=== PATIENT | female | born 1965 | race Caucasian/White ===

== ENCOUNTER 2018-03-15 13:01 | Emergency (ER) | payer MEDICAID ==
[~2018-03-15] VITALS: Ht 162.6 cm; Wt 76.0 kg
[2018-03-15] MEDS ORDERED: NITROFURANTOIN 100MG M/M CAPSULE PO ONE (16:00)
[2018-03-15 16:31] LABS: CLARITY URINE CLEAR (CLEAR); COLOR URINE YELLOW (YELLOW); KETONES URINE NEGATIVE (NEGATIVE); LEUKOCYTE ESTERASE URINE NEGATIVE (NEGATIVE); NITRITE URINE NEGATIVE (NEGATIVE); OCCULT BLOOD URINE 2+ (NEGATIVE); PH URINE 7.5 (4.5-8.0); PROTEIN URINE NEGATIVE (NEGATIVE); SPECIFIC GRAVITY URINE 1.006 (1.005-1.030); UROBILINOGEN URINE 0.2 E.U./dL (0.2-1.0)
[2018-03-15 16:51] LABS: *BARBITURATES SCREEN URINE NEGATIVE (NEGATIVE); *BENZODIAZEPINES SCREEN URINE NEGATIVE (NEGATIVE); *COCAINE SCREEN URINE NEGATIVE (NEGATIVE)
[2018-03-15 16:52] LABS: *AMPHETAMINES SCREEN URINE NEGATIVE (NEGATIVE); CANNABINOID URINE SCREEN NEGATIVE (NEGATIVE); METHADONE URINE SCREEN NEGATIVE (NEGATIVE); OPIATES URINE SCREEN NEGATIVE (NEGATIVE); PHENCYCLIDINE URINE SCREEN NEGATIVE (NEGATIVE)
[2018-03-15 17:07] LABS: BASOPHILS % 1.6 % (0.0-2.0); EOSINOPHILS % 4.3 % (0.0-5.0); HEMATOCRIT. 40.2 % (36.0-48.0); HEMOGLOBIN. 13.6 g/dL (12.0-16.0); MEAN CORPUSCULAR HEMOGLOBIN 30.9 pg (28.0-32.0); MEAN CORPUSCULAR VOLUME 91.3 fL (81.0-99.0); MEAN PLATELET VOLUME 7.2 fl (7.4-10.4); MONOCYTES % 8.3 % (2.0-8.0); NEUTROPHILS % 55.8 % (40.0-76.0); PLATELET 423 x1000/uL (130-400); RED CELL DISTRIBUTION WIDTH 14.3 % (11.6-14.6)
[2018-03-15 17:16] LABS: CHLORIDE 101 mEq/L (98-107)
[2018-03-15 17:28] LABS: ETHANOL BLOOD < 10 mg/dL
[2018-03-15] MEDS ORDERED: PARO40TA75 MT (19:12)
[2018-03-15] MEDS ORDERED: ARIP15TA2 MT (19:12)
[2018-03-15] MEDS ORDERED: HYDR-3735 MT (19:12)
[2018-03-15] MEDS ORDERED: TRAZ-212 MT (19:12)
[2018-03-15] MEDS ORDERED: RISP0.5T19 MT (19:12)
[2018-03-15] MEDS ORDERED: HYDR-459 MT (19:12)
[2018-03-16] MEDS ORDERED: PAROXETINE HCL 10MG TABLET PO STA (17:14)
[2018-03-16] MEDS ORDERED: ARIPIPRAZOLE 10MG TABLET PO ONE (17:15)
[2018-03-17] MEDS ORDERED: PAROXETINE HCL 10MG TABLET PO ONE (11:00)
[2018-03-17] MEDS ORDERED: ARIPIPRAZOLE 10MG TABLET PO ONE (11:00)
[2018-03-17 11:55] VITALS: BP 110/60
== END 2018-03-17 12:17 ==
LOC: ER 13:01
DX: F32.9 Major depressive disorder, single episode, unspecified (principal); R45.851 Suicidal ideations; Z59.0 Homelessness; Z98.890 Other specified postprocedural states; Z79.899 Other long term (current) drug therapy; Z88.5 Allergy status to narcotic agent
CPT/HCPCS: 36415; 80053; 80305; 80307; 80329; 81003; 85025; 93005; 99285; G0482; 99284